=== PATIENT | male | born 2000 | race Caucasian/White ===

== ENCOUNTER 2024-02-17 11:23 | Observation (INO) ==
--- NOTE | 2024-02-13 12:47 | Anesthesiology Consultation ---
Date of Service February 13, 2024 Assessment & Plan (1) Encounter for pre-operative examination: Plan - [facility] 02/12/24: "...right lower leg after falling ice-skating today...I examined the patient...X-rays of the tib-fib were reviewed by myself and concerning for proximal fibula and distal tibia fracture that is distracted per my independent potation. Stirrup and posterior Ortho-Glass splint was applied to the ankle under my direction and the position was satisfactory. Neurovascular status was rechecked and intact..." - Per irrigationist designer on 02/13/24: No known infectious disease contacts, current infectious disease symptoms in past 10 days or COVID positive test result in the past 30 days. Chart Review Chart Review: Acceptable Risk for Surgery and Patient NOT seen in Pre Admission Testing History Surgery Operation Date: 02/17/24 13:00 Proposed Procedures p Right Tibial Fracture Intramedullary Nail versus Right Open Reduction Internal Fixation Tibial Fracture - Fredi Torres MD Height/Weight Height: 5 ft 10 in Weight: 83 kg Allergies Allergy/AdvReac Type Severity Reaction Status Date / Time amoxicillin Allergy Intermediate HIVES A Verified 02/13/24 15:53 CHILD Cephalosporins Allergy Intermediate HIVES A Verified 02/13/24 15:53 CHILD Medications Home Medications Medication Instructions Recorded Confirmed Last Taken acetaminophen 500 mg capsule 1,000 mg PO Q6H PRN Pain 02/13/24 02/13/24 Unknown aspirin 325 mg capsule 325 mg PO BID 02/13/24 02/13/24 Unknown melatonin 3 mg tablet 3 mg PO HS PRN Sleep 02/13/24 02/13/24 Unknown oxycodone 5 mg tablet 5 mg PO Q6H PRN pain #10 tabs 02/13/24 02/13/24 Unknown Past Medical History Medical History (Updated 02/13/24 @ 16:17 by Alicia Minaya PA-C) Environmental allergies Hyperlipidemia no meds "diet controlled" Hypertension no meds "diet controlled" Past Family History Family History (Updated 02/13/24 @ 15:59 by Sol Leroy RN) Other No family history of adverse response to anesthesia Past Surgical History Surgical History (Updated 02/13/24 @ 15:58 by Sol Leroy RN) No pertinent past surgical history Social History Smoking Status: Never smoker alcohol intake frequency: a few times a month Hx Substance Use: No
[2024-02-17] MEDS ORDERED: ePHEDrine sulfate 50 MG/ML AMP IV PRN (12:19)
[2024-02-17] MEDS ORDERED: PROMETHAZINE HCL 6.25 MG in SODIUM CHLORIDE 0.9% 50 ML IV PRN (12:19)
[2024-02-17] MEDS ORDERED: ATROPINE SULFATE 0.1 MG/ML 10ML SYR IV PRN (12:19)
[2024-02-17] MEDS ORDERED: ONDANSETRON INJ 2 MG/ML 2 ML VIAL IV PRN ×2 (12:19→18:27)
[2024-02-17] MEDS ORDERED: HYDROmorphone INJ 2 MG/ML SYR/VIAL IV PRN (12:19)
[2024-02-17] MEDS ORDERED: fentaNYL citrate PF 100 MCG/2 ML VIAL IV PRN (12:19)
[2024-02-17] MEDS: LACTATED RINGER'S 1,000 ML IV SCH (12:26)
[2024-02-17] MEDS: LR 15ML/HR IV SCH (12:27)
[2024-02-17] MEDS ORDERED: ONDANSETRON INJ 2 MG/ML 2 ML VIAL ONE (12:38)
[2024-02-17] MEDS ORDERED: PROPOFOL IV EMULSION 10 MG/ML 20 ML VIAL IV ONE (12:38)
[2024-02-17] MEDS ORDERED: fentaNYL citrate PF 100 MCG/2 ML VIAL ONE ×2 (12:38→15:15)
[2024-02-17] MEDS ORDERED: LIDOCAINE 2% 2 ML VIAL/AMP(20MG/ML) INFIL ONE (12:38)
[2024-02-17] MEDS ORDERED: MIDAZOLAM HCL 1 MG/ML 2ML VIAL ONE (12:38)
[2024-02-17] MEDS ORDERED: DEXAMETHASONE SOD INJ 4 MG/ML VIAL ONE (12:38)
--- NOTE | 2024-02-17 13:17 | History & Physical Bridge Note ---
Date of Service February 17, 2024 History & Physical Bridge Note I have examined the patient, reviewed the History & Physical and in the interval since the performance of the History & Physical I have noted the following changes of clinical significance: no changes noted
[2024-02-17] MEDS ORDERED: ROPIVACAINE 0.5% 5 MG/ML 30 ML VIAL ONE (13:23)
[2024-02-17] MEDS ORDERED: KETOROLAC 30 MG/ML VIAL ONE (15:03)
[2024-02-17] MEDS ORDERED: ACETAMINOPHEN 1000 MG/100 ML IV IV ONE (15:20)
--- NOTE | 2024-02-17 17:15 | Operative Report ---
Post Operative Report Pre & Post Diagnosis Operation Date: 02/17/24 13:00 Pre-Op Diagnosis: Right Tibia Shaft Fracture Post-Op Diagnosis: Right Tibia Shaft Fracture I identified the patient and participated in the time-out.: Yes Procedure Operation Date: 02/17/24 13:00 Actual Procedures p Right Open Reduction Internal Fixation Tibial Fracture(Right) - Fredi Torres MD Surgeon Fredi Torres M.D. Avionics Electrical Engineer Carrie Rivera PA-C; no fellow or resident available Estimated Blood Loss 20 Findings Consistent with Post-Op Diagnosis Specimens none Anesthesia Type General Regional Description of Procedure Patient was taken to the operating room and placed under general anesthesia. Given a peripheral nerve block preoperatively. Timeout was performed. He was given 900 mg IV clindamycin preoperatively. He was prepped and draped in routine sterile fashion. I was present during the entire procedure please see Dr. Torres's operative report for further details regarding today's procedure. Patient was awakened and transferred to the recovery room in stable condition. I attest to the content of the Intraoperative Record and any orders documented therein. Any exceptions are noted below.
--- NOTE | 2024-02-17 17:15 | Operative Report ---
Post Operative Report Pre & Post Diagnosis Operation Date: 02/17/24 13:00 Pre-Op Diagnosis: Right Tibia Shaft Fracture Post-Op Diagnosis: Right Tibia Shaft Fracture I identified the patient and participated in the time-out.: Yes Procedure Operation Date: 02/17/24 13:00 Actual Procedures p Right Open Reduction Internal Fixation Tibial Fracture(Right) - Fredi Torres MD Surgeon Fredi Torres MD Medical Physicist Carrie Rivera physicians talent assistant no resident or fellow available Estimated Blood Loss 20 Findings Consistent with Post-Op Diagnosis Specimens None Anesthesia Type General Regional Complications none Disposition Accompanied Patient To Recovery: No Disposition: Recovery Room Indications yessi 23 years old. He broke his right tib-fib last week. I recommended surgery and agreed to proceed. The CT scan showed that the fracture extends down into the posterior malleolus of the ankle joint. It is nondisplaced. For this reason I have recommended that we do an open reduction and stabilize this fracture fragment with the plate and screws. Description of Procedure Informed consent. I identified the patient. Preop surgical timeout. Preop dose of IV antibiotics. Taken to the OR positioned supine on the operating table. Anesthetic administered. Tourniquet applied to the right thigh. The leg was shaved and then prescrubbed. Prepped and draped in usual sterile fashion. DVT prophylaxis with foot pumps intraoperatively. Postop early mobility and Lovenox.There were no blistering of the skin. Bruising was noted medially. The fracture was unstable. Skin wrinkles are present.Bone foam under the right leg. Limb exsanguinated the Esmarch and tourniquet inflated to 250 mmHg. Fluoroscopic guidance utilized to localize the fracture as well as the ankle joint. I made a longitudinal incision just lateral to the crest of the tibia and then crossing over the tibialis anterior at the level of the ankle joint. The skin was sharply incised followed by blunt dissection down to the subcutaneous tissues. The fascia/extensor retinaculum just medial to the tibialis anterior was incised and then it was elevated up off of the lateral tibia. The incision began just proximal to the fracture site. Significant bruising medially. Skin intact. Fracture site was opened and cleaned of soft tissue and hematoma then anatomically reduced and held with a alligator clamp directly on bone. I debated on two 3.5 mm lag screws versus one 4.5 mm cortical screw for a lag screw. I did not think there was quite enough room for the 2 smaller screws so I went ahead and put a 4.5 mm bicortical lag screw from proximal medial to distal posterior and lateral. I used a countersink. I had some difficulty getting the screw into the distal hole. Probably because the screw head was hitting off of the cortex as the screw went in. I tried a longer screw without success. I was eventually able to insert a 3.5 millimeter screw and found the right trajectory which I was then able to use for the 4.5 millimeter screw. Did a little bit more countersinking as well. This gave good fixation in stable anatomical alignment. I then looked at a couple different variable angle distal tibial plates. I selected a 12 hole plate which would give me 6 holes above the fracture site. The plate was inserted submuscularly along the lateral border of the tibia. Prior to this I did a anterior compartment fasciotomy. This was done by dissecting underneath the skin angling a little anterolateral with the scissors and then underneath the fascia and then finally incising the fascia. This went about three quarters of the way proximal up towards the knee joint and the compartment. The plate was positioned distally. Checked fluoroscopically and was in good position distally in both the AP and lateral planes. Proximally it was of proper length but situated slightly off of the bone which I thought I could bring down with a cortical screw. I then inserted a K wire distally and a K wire proximally to hold the plate in position. I then inserted 3 2.7 mm bicortical lag screws which went through the distal lateral holes in the plate. These were put in lag mode to capture the posterior malleolar fragment. This went about two thirds of the way across the posterior tibia and was about 3 cm from the joint surface. Care was taken avoid the inside short of fibularis. The fracture remained anatomically aligned and I had good purchase with all 3 screws. I made a small incision proximally. In order to remove some of the interposed muscle and be satisfied with the apposition of the plate to the bone I completed the incision along the length of the plate was able to clear out the muscle underneath the plate and then fix it with a bicortical screw proximally. The plate was on the bone in both planes. I then inserted 2 bicortical locking screws proximally. 2 unicortical locking screws distally and a bicortical locking screw in the shaft of the plate distal to the fracture. There was good rigid fixation and anatomical alignment.The tourniquet was let down and meticulous hemostasis was performed. Copious irrigation was done thr oughout the surgical procedure and particularly at the end. Bone graft from the drilling was applied to the medial fracture site. The skin was then closed with 2-0 Vicryl through the subcutaneous tissue and/or dermal layer as appropriate. The tibialis anterior was allowed to fall over the plate. Uri. The leg was cleaned wet and dry sponges saw sterile dressing was applied. Patient wake from anesthesia without difficulty taken to the recovery in stable condition. No specimens or complications counts were correct blood loss is estimated to be 20 cc. At the inclusion the operation spoke to patient's father informed of my findings postop instructions were given. No weightbearing. Lovenox beginning the morning after surgery. [employer] 2.7/3.5 variable angle anterolateral distal tibia locking plate with 12 hole shaft. I attest to the content of the Intraoperative Record and any orders documented therein. Any exceptions are noted below.
[2024-02-17] MEDS ORDERED: oxyCODONE HCL IR 5 MG TAB (IMMEDIATE RELEASE) PO PRN (18:27)
[2024-02-17] MEDS ORDERED: MELATONIN 3 MG TAB PO PRN (18:27)
[2024-02-17] MEDS ORDERED: METOCLOPRAMIDE HCL INJ 5 MG/ML 2 ML VIAL IV PRN (18:27)
[2024-02-17] MEDS ORDERED: traMADol HCL 50 MG TABLET PO PRN (18:27)
[2024-02-17] MEDS ORDERED: HYDROmorphone INJ 0.5 MG/0.5 ML SYR IV PRN (18:27)
[2024-02-17] MEDS ORDERED: diphenhydrAMINE 50 MG/ML VIAL IV PRN (18:27)
[2024-02-17] MEDS ORDERED: TAMSULOSIN HCL 0.4 MG CAP PO PRN (18:27)
[2024-02-17] MEDS ORDERED: MAGNESIUM HYDROXIDE SUSP 30 ML UDC PO PRN (18:27)
[2024-02-17] MEDS ORDERED: NALOXONE HCL 0.4 MG/1 ML VIAL/CARP IV PRN (18:27)
[2024-02-17] MEDS ORDERED: HYDROmorphone INJ 1 MG/ML SYRINGE IV PRN (18:27)
[2024-02-17] MEDS ORDERED: bisacodyL 10 MG SUPP PR PRN (18:27)
[2024-02-17] MEDS: CLINDA 900 MG **Premixed Bag IV SCH (18:34)
[2024-02-17] MEDS: SODIUM CHLORIDE 0.9% 1,000 ML IV SCH (18:45)
--- NOTE | 2024-02-17 18:48 | Anesthesiology Progress Note ---
Date of Service February 17, 2024 Anesthesia Post Procedure Vital Signs Vital Signs: Temp Pulse Pulse Resp BP Pulse Ox O2 Del Method 02/17/24 18:30 36.4 C L 85 17 143/82 H 97 Room Air 02/17/24 17:55 36.8 C 87 17 140/81 95 Room Air 02/17/24 17:45 91 H 12 129/81 97 Room Air 02/17/24 17:35 82 15 127/70 98 Room Air 02/17/24 17:25 88 17 131/83 97 Room Air 02/17/24 17:15 77 14 128/72 98 Room Air 02/17/24 17:07 37.1 C 86 12 123/84 99 Oxymask 02/17/24 11:50 36.6 C 99 H 20 147/89 H 97 Room Air O2 Flow Rate 02/17/24 18:30 02/17/24 17:55 02/17/24 17:45 02/17/24 17:35 02/17/24 17:25 02/17/24 17:15 02/17/24 17:07 6 02/17/24 11:50 Pain Intensity Right Lower Leg: Pain Intensity: 2 Transfer of Care Handoff Completed per policy Notes Mental Status: alert / awake / arousable and participated in evaluation Patient Amnestic to Procedure: Yes Nausea / Vomiting: adequately controlled Pain: adequately controlled Airway Patency, RR, SpO2: stable & adequate BP & HR: stable & adequate Hydration State: stable & adequate Anesthetic Complications: no major complications apparent
--- OUTSIDE RECORDS SUMMARY | 2024-02-17 18:56 | External Medical Summary | Continuity of Care Document ---
Author Name Unknown Organization [facility] [address] [id number] Address [address] [place] [id number] Encounter [facility] [id number] Date(s): 02/13/24 - 02/13/24 [facility] [address] [facility] [address] [facility] [address] [place] [address], [address] [address] Encounter Diagnosis Fracture, tibia, shaft(Discharge Diagnosis) - 02/13/24 Discharge Disposition: Home or Self Care Attending Physician: MD Melissa, Fredi Tejada Allergies, Adverse Reactions, Alerts Substance Criticality Severity Reaction Reaction Severity Status amoxicillin hives Active cephalosporins hives Activ e Medications oxyCODONE (capsule) 5 mg oral Start: 02/13/24 11:17:00 AM EDT, Refills: 0 Start Date: 02/13/24 Status: Ordered Tylenol Start: 02/13/24 11:17:00 AM EDT Start Date: 02/13/24 Status: Ordered Mental Status 02/13/24 Barriers to Learning one year None evide nt Mandatory Health Literacy Documentation Yes Health Literacy Communication Barriers N ever Primary Language [place] Problem List Condition Confirmation Course Effective Dates Status Health St atus Informant Fracture, tibia, shaft Confirmed Active Diagnosis Diagnosis Type Effective Dates Health Status inical Service Informant Fracture, tibia, shaft Discharge Diagnosis 02/13/24 Non-Specified Vital Signs Most recent to oldest [Reference Range]: 1 Height 177.8 cm (02/13/24 11:13 AM) Patient Weight 84.3 kg (02/13/24 11:13 AM) Body Mass Index 26.67 kg/m2 (02/13/24 11:13 AM) Temperature [36.5-37.9 DegC] 36.6 DegC (02/13/24 11:13 AM) Heart Rate 95 bpm (02/13/24 11:13 AM) Respiratory Rate 18 br/min (02/13/24 11:13 AM) Blood Pressure 122/70mmHg (02/13/24 11:13 AM) Cuff Pulse Pressure 52 mmHg (02/13/24 11:13 AM) Social History Social History Type Response Smoking Status Never smoked cigaret dennys Sex Male Sex Representation Male (finding) History and physical note * JOSE Burgos, Chayo: PERFORM Event Display: H&P Authored Date: Chief Complaint right leg History of Present Illness [address],[employer] student,who presents today forpreoperative history and physical for open reduction internal fixation versus intramedullarynailingright tibial fracture. Patient reports he was ice skating last night when he fell and injured his right leg. Patient states he was veering left when his right leg buckled beneath him. He went to the ED where x-rays were obtained and he was placed in splint and crutches.He complains of the most pain of his proximal lower leg. He reports no prior injuries of his right leg. He has a 2/10 pain now the splint is loosened but will have increased pain with movement sometimes to an 8/10. [1] He notes a history of high blood pressure and cholesterol controlled with diet and lifestyle changes. No history of Staph or MRSA, no allergies to metal/nickel, no bleeding or blood clots. [2] Review of Systems DeniesRecent illnesses, colds/flu, pneumonia, COVID or COVID exposures; DeniesFevers, chills, malaise; DeniesChest pain, heart palpitations; DeniesShortness of breath, cough; DeniesHeadacheor blurry vision; DeniesAbdominal pain, nausea, vomiting, diarrhea, or urinary symptoms Physical Exam Vitals & Measurements T:36.6C HR:95(Monitored) RR:18 BP:122/70 SpO2:99% HT:177.8cm WT:84.300kg(Dosing) WT:84.3kg BMI:26.67 General: Pt is well nourished, seated on the exam table AA&O, in NAD, calm and cooperative during exam HENT: Nontraumatic, no gross deformity, hearing and vision grossly in-tact, PERRL Heart: +S1, +S2, RRR, no murmurs appreciated Lungs: CTABL, no wheezing appreciated Focuson the right lower extremity: 1+ DP ad 1+ PT pulse 4/5 ankle and toe dorsiflexion and plantarflexion. Able to activate ankle eversion Swelling of the lower leg Bruising and tenderness over distal tibia Foot nontender No pain with passive movement Compartments are soft [3] Diagnostic Results I reviewed x-rays of theright tib/fib done 02/12/2024 at [facility] which shows a fracture of the distaltibia and fracture of proximal fibula, both displaced. [4] Assessment/Plan 1.Fracture, tibia, shaft Preop The risks and benefits of surgery as well as the post operative course was explained and discussed with the patient. Written consent obtained. The patient's past medical history, surgeries, social history, medication list, allergies and PDMP were reviewed and confirmed with the patient. Preoperative orders were placed. We discussed postoperative pain medications includingoxycodone, tylenol,aswell as icing and elevating to control pain. DVT prophylaxis -ASA 325mg BID x 4 weeks, DAVID stockings x 3 weeks. Additional medications -stool softener as needed to prevent constipation while on na rcotics. The patient has been scheduled for post operative appointments. He would like to do physical therapy at [facility] and a prescription was provided for him today. He was instructed to call and set of the appointments. He does have crutches.He will continue to be not weightbearing using the crutches and leave splint intact.He is going up after his appointment to have a CT done per Dr. Torres's protocol.He was also instructed to start 325 mg aspirintwice a day for blood clot prevention per PSS.The patient was given a preoperative booklet and we reviewed the most pertinent things leading up to the surgery and the day of surgery; including any assisted devices pt may need, when/who to call for the surgery time, where to arrive the day of surgery, NPO after midnight, medications to hold, prepping the skin with CHG to prevent infection etc. All of their questions and concerns were answered today. They were instructed to call our office if they have any further questions or concerns. Problem List/Past Medical History Ongoing Fracture, tibia, shaft Medications acetaminophen(Tylenol) oxyCODONE(oxyCODONE (capsule) 5 mg oral) Allergies amoxicillinhives cephalosporinshives Social History Smoking Status Never smoked cigarettes Recommendations Health Maintenance Pending(in the next year) OverDue Adult Influenza Vaccine due12/14/23and every 1year Satisfied(in the past 1 year) There are no satisfied recommendations within the defined date range [1]Fredi Torres; Edilma Dozier 02/13/2024 11:15 EDT [2]Fredi Torres; Edilma Dozier 02/13/2024 11:15 EDT [3]Fredi Torres; Edilma Dozier 02/13/2024 11:15 EDT [4]Fredi Torres; Edilma Dozier 02/13/2024 11:15 EDT Electronic Signature on File Electronically Reviewed/Signed by: Chayo Burgos PA-C Author Signature Dt/Tm:02/13/2024 01:12 PM Physician Irrigationist, Dept. of Orthopaedics and Sports Medicine [facility] - [address], [place] [address] Electronically Reviewed/Signed by: Fredi Torres MD Cosigner Signature Dt/Tm: 02/13/2024 04:42 PM Division of Sports Medicine [place]
[2024-02-17 19:33] LABS: Creatinine Clr Calc Pharmacy 143.9 ml/min; Est GFR (African American) 143.2 ml/min; Est GFR (Non-African American) 123.5 ml/min
--- NOTE | 2024-02-17 19:34 | Fluoroscopy Report ---
FL ankle RT 2V CLINICAL HISTORY: RIGHT TIB/FIB NAIL VS ORIF TECHNIQUE: 5 views were obtained with the C-arm in the OR with the above procedure. Total fluoroscopy time was 80.9 seconds. Radiation dose was 1.40 mGy. Comparison: Comparison is made to CT right ankle 02/13/2024 FINDINGS/IMPRESSION: Intraoperative images were obtained of plate and screw fixation of the tibial fr acture. Please correlate with intraoperative fluoroscopy and operative report. ACT 112: Negative or not required by law. Electronically signed by: Kaushal Hanley M.D. 02/17/2024 7:32 PM
[2024-02-17] MEDS: ACETAMINOPHEN 500 MG TAB PO SCH (21:50)
[2024-02-17] MEDS: SENNA 8.6 MG TAB PO SCH (21:50)
[2024-02-17] MEDS: DOCUSATE SODIUM 100 MG CAP PO SCH (21:53)
[2024-02-17] MEDS: CLINDAMYCIN/D5W 600 MG/50 ML BAG IV SCH (23:24)
[2024-02-18 06:44] LABS: Hematocrit (blood only) 34.6 % (42.0-52.0); Hemoglobin 11.7 g/dl (14.0-18.0); Mean Corpuscular Hemoglobin 29.5 pg (25.0-34.0); Mean Corpuscular Hgb Conc 33.8 g/dL (32.0-36.0); Mean Corpuscular Volume 87.4 fL (80.0-100.0); Mean Platelet Volume 9.4 fL (9.4-12.4); Platelet Count 232 K/uL (130-400); RDW Coefficient of Variation 12.5 % (11.5-14.5); RDW Standard Deviation 39.9 fL (36.4-46.3); Red Blood Count 3.96 M/uL (4.70-6.10)
[2024-02-18 07:10] LABS: Anion Gap 2 (3-11); BUN Creatinine Ratio 17.6 (10-20); Blood Urea Nitrogen 12 mg/dl (6-23); Calcium 8.1 mg/dl (8.6-10.3); Carbon Dioxide 30 mmol/L (21-32); Chloride 106 mmol/L (98-107); Creatinine Clr Calc Pharmacy 171.5 ml/min; Est GFR (African American) > 150.0 ml/min; Est GFR (Non-African American) 132.7 ml/min; Glucose 127 mg/dl (70-99(Fasting)); Potassium 3.7 mmol/L (3.5-5.1); Sodium 138 mmol/L (136-145)
[2024-02-18] MEDS: MULTIVITAMIN TAB PO SCH (08:56)
[2024-02-18] MEDS: ENOXAPARIN INJ 30 MG/0.3 ML SYR SQ SCH (08:57)
--- NOTE | 2024-02-18 10:27 | Orthopedic Progress Note ---
Date of Service February 18, 2024 Assessment & Plan (1) Fracture tibia/fibula: Plan: Postop day 1-status post open reduction internal fixation right tibia fracture. Close care right fibula fracture Needs to be nonweightbearing right lower extremity at all times. Keep postoperative dressings in place. To physical therapy and Occupational Therapy today. Regular diet ordered. Patient tolerating. Pain medication as prescribed. Lovenox 30 mg twice daily for DVT prophylaxis. Patient will need taught how to give himself the Lovenox. This will continue for 2 to 4 weeks after surgery. Teds and AV impulse boots while in the hospital. Patient would like to shower today. Order was placed for him to get a shower prior to being discharged from the hospital. Crutches and/or walker for assistance with ambulation. Encouraged ice and elevation of the right ankle. Encouraged passive and active range of motion of the foot and ankle as tolerated. Suspect that his preoperative peripheral nerve block is still working. Will continue to monitor. Discharge instructions reviewed. Postoperative appointments have been scheduled. He knows to call with any problems, questions or concerns. All questions were answered today. Admission and Anticipated Discharge Date Admission Date: February 17, 2024 Victor M Munoz was seen today at bedside. His father is at bedside. He is doing well. He was just finished with physical therapy. He did well with crutches. He has been nonweightbearing. Denies any pain in his right ankle or lower leg. He is able to lift his leg but does not seem to have any ankle range of motion. States that he still has some numbness and tingling of the foot. Denies any postoperative chest pains, shortness of breath, nausea or vomiting. Denies any lightheadedness or dizziness. Overall feeling well. Physical Exam Musculoskeletal: Exam of his right lower extremity: His postoperative dressings are clean, dry and intact. He is able to independently straight leg raise and flexes to knee to about 80 degrees today. He does not flex it further due to some discomfort in the lower leg. He is able to plantarflex his foot. He is unable to do inversion or eversion. He is unable to dorsiflex his ankle or toes today. He is able to curl his toes. Capillary fill is brisk. Distal pulses are 1+. Foot is warm. He is able to tolerate gentle dorsiflexion of about 10 or 15 degrees. This does reproduce pain in the back of his ankle. Passively I can also do about 5 degrees of inversion and eversion which is limited due to discomfort in the lower leg. Postoperative dressings were left in place. Results & Data Vital Signs (Past 12 Hours) Vital Signs Temp Pulse Resp BP Pulse Ox O2 Del Method 02/18/24 08:02 36.8 C 88 18 128/62 98 Room Air 02/18/24 03:00 37.1 C 92 H 18 119/72 98 Room Air 02/17/24 23:37 37.2 C 98 H 18 134/74 98 Room Air Laboratory Results 02/18/24 02/17/24 Range/Units 06:18 18:51 WBC 11.70 H (4.8-10.8) K/ul RBC 3.96 L (4.70-6.10) M/uL Hgb 11.7 L (14.0-18.0) g/dl Hct 34.6 L (42.0-52.0) % MCV 87.4 (80.0-100.0) fL MCH 29.5 (25.0-34.0) pg MCHC 33.8 (32.0-36.0) g/dL RDW Std Deviation 39.9 (36.4-46.3) fL RDW Coeff of [place] 12.5 (11.5-14.5) % Plt Count 232 (130-400) K/uL MPV 9.4 (9.4-12.4) fL Sodium 138 (136-145) mmol/L Potassium 3.7 (3.5-5.1) mmol/L Chloride 106 (98-107) mmol/L Carbon Dioxide 30 (21-32) mmol/L Anion Gap 2 L (3-11) BUN 12 (6-23) mg/dl Creatinine 0.68 0.81 (0.6-1.4) mg/dl Est Cr Clr Drug Dosing 171.5 143.9 ml/min Est GFR ( Amer) > 150.0 143.2 ml/min Est GFR (Non-Af Amer) 132.7 123.5 ml/min BUN/Creatinine Ratio 17.6 (10-20) Glucose 127 H (70-99(Fasting)) mg/dl Calcium 8.1 L (8.6-10.3) mg/dl Diagnostic Findings FL ankle RT 2V CLINICAL HISTORY: RIGHT TIB/FIB NAIL VS ORIF TECHNIQUE: 5 views were obtained with the C-arm in the OR with the above procedure. Total fluoroscopy time was 80.9 seconds. Radiation dose was 1.40 mGy. Comparison: Comparison is made to CT right ankle 02/13/2024 FINDINGS/IMPRESSION: Intraoperative images were obtained of plate and screw fixation of the tibial fracture. Please correlate with intraoperative fluoroscopy and operative report. (1) Fracture tibia/fibula Encounter type: initial encounter Fracture type: closed Laterality: right Qualified Code(s): S82.201A - Unspecified fracture of shaft of right tibia, initial encounter for closed fracture; S82.401A - Unspecified fracture of shaft of right fibula, initial encounter for closed fracture
--- NOTE | 2024-02-18 14:26 | Discharge Summary ---
Date of Service February 18, 2024 Discharge Data Procedures Performed Operation Date: 02/17/24 13:00 Actual Procedures p Right Open Reduction Internal Fixation Tibial Fracture(Right) - Fredi Torres MD Hospital Course (1) Fracture tibia/fibula: Patient was kept in observation at [facility] after undergoing open reduction internal fixation of his right tibia and fibula fracture. Surgery was performed on February 17, 2024. His surgery was performed with general anesthesia and a peripheral nerve block. He tolerated the procedure well without any intraoperative complications. He was given 2 g of IV Ancef for surgical prophylaxis which was continued for 24 hours after surgery. Intraoperative x-ray showed adequate alignment of the fracture with internal hardware. Postoperatively he was allowed out of bed as tolerated with the assistance of crutches and/or a walker. He was to remain nonweightbearing on the right lower extremity at all times. He was encouraged to do range of motion of his hip, knee and ankle as tolerated. Encouraged ice and elevation of his right lower extremity above his heart to relieve pain and swelling. He was started on Lovenox 30 mg subcutaneous injection twice daily on February 18, 2024 at 9 AM. He was also given DAVID stockings for the left leg as well as AV impulse boots on bilateral lower extremities for DVT prophylaxis. Physical therapy and Occupational Therapy consults were placed. He was seen and evaluated by them today on postoperative day 1. He was deemed safe for discharge to his home. His intraoperative x-rays were reviewed with the patient and his father. He was given a regular diet which he tolerated after surgery. His vital signs remained stable. His postoperative laboratory work was within normal limits with no evidence of abnormalities. His pain was well-controlled on IV Dilaudid, oxycodone and Tylenol. His home medications were continued. His postoperative dressings were left in place and will be changed at his outpatient appointment. Discharge instructions were reviewed. He was discharged to his home in stable condition with the assistance of his father on February 18, 2024.
== END 2024-02-18 14:04 | disposition home or self-care (01) ==
LOC: ASU 11:23 → 3E 11:23